=== PATIENT | female | born 1985 | race Caucasian/White ===

== ENCOUNTER → 2024-03-10 08:03 | Outpatient (CLI) | payer OTHER, SELFPAY ==
--- NOTE | 2024-03-10 08:07 | DI.MRI.S_ITS ---
PROCEDURE: MR LUMBAR SPINE WO CON INDICATIONS: intervertebral disc displacement, lumbar region TECHNIQUE: Noncontrast sagittal T1 spin echo and T2 fast echo, sagittal STIR, and T2 fast spin echo through the lumbar spine. In cases with scoliosis, additional coronal T2 fast spin echo may be performed. COMPARISON: None. FINDINGS: Image quality: Excellent. Alignment and Curvature: There is normal bony alignment. Bone Marrow: Modic type 1 degenerative endplate changes at L5-S1. Marrow is of normal overall signal. No acute vertebral body compression fractures. Spinal Cord: Conus medullaris terminates at the L1 level. Visualized cord demonstrates normal signal and size. Paraspinous Soft Tissues: No paravertebral masses. T12-L1: Normal appearance. L1-L2: Normal appearance. L2-L3: Normal appearance. L3-L4: Disc desiccation and mild diffuse disc bulge. Mild facet arthropathy. No central canal stenosis. No neural foraminal stenosis. L4-L5: Facet arthropathy and thickening of ligamentum flavum. No central canal or neural foraminal stenosis. L5-S1: Disc desiccation and height loss. Mild diffuse disc bulge with small central disc extrusion extending inferiorly. No central canal or neural foraminal stenosis. IMPRESSION: 1. Degenerative disc disease of the lower lumbar spine as described above. 2. No significant central canal or neural foraminal stenosis. Dictated by: He Mills M.D. on 03/10/2024 at 9:11 Approved by: He Mills M.D. on 03/10/2024 at 9:14
== END ==
PROVIDERS: Family Provider Nurse Practitioner Women's Health; Referring Provider Physical Medicine & Rehabilitation; Visit Provider Physical Medicine & Rehabilitation
DX: M51.26 Other intervertebral disc displacement, lumbar region (principal); M51.27 Other intervertebral disc displacement, lumbosacral region; M51.36 Other intervertebral disc degeneration, lumbar region; M51.37 Other intervertebral disc degeneration, lumbosacral region; M47.816 Spondylosis without myelopathy or radiculopathy, lumbar region
CPT/HCPCS: 72148

== ENCOUNTER 2024-09-14 08:15 | Outpatient (RCR) | payer OTHER, SELFPAY ==
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
== END 2024-09-26 08:51 | disposition home or self-care (01) ==
LOC: PHYS 08:15
PROVIDERS: Family Provider Nurse Practitioner Women's Health; Referring Provider Nurse Practitioner Women's Health; Visit Provider Nurse Practitioner Women's Health
DX: N81.89 Other female genital prolapse (principal)
CPT/HCPCS: 97110; 97112; 97535

== ENCOUNTER → 2024-12-05 14:08 | Outpatient (CLI) | payer OTHER, SELFPAY ==
--- NOTE | 2024-12-05 | DI.MRI.S_ITS ---
PROCEDURE: MR LUMBAR SPINE WO CON INDICATIONS: Lower back pain TECHNIQUE: Noncontrast sagittal T1 spin echo and T2 fast echo, sagittal STIR, and T2 fast spin echo through the lumbar spine. In cases with scoliosis, additional coronal T2 fast spin echo may be performed. COMPARISON: [facility], MR, MR LUMBAR SPINE WO CON, 03/10/2024, 8:12. [facility], CR, XR LUMBAR SPINE 2 OR 3 VIEWS, 02/24/2024, 9:54. FINDINGS: Image quality: Excellent. Alignment and Curvature: There is normal bony alignment. Bone Marrow: Marrow is of normal overall signal. No acute vertebral body compression fractures. Spinal Cord: Conus medullaris terminates at the L1 level. Visualized cord demonstrates normal signal and size. Paraspinous Soft Tissues: No paravertebral masses. T12-L1: Normal appearance. L1-L2: Normal appearance. L2-L3: Normal appearance. L3-L4: The disc height is well-preserved. Loss of disc signal is seen at this level. Mild generalized disc bulge is seen. There is a focal annular fissure seen posteriorly. No significant neural foraminal or central canal narrowing can be seen. Stable from the prior study. L4-L5: The disc height and disk signal are well-preserved. Mild facet joint hypertrophy is seen. No neural foraminal narrowing or central canal narrowing can be seen. Stable from the prior study. L5-S1: Mild loss of disc height is seen. Loss of disc signal is seen. Mild generalized disc bulge is seen. Mild facet joint hypertrophy is seen. No neural foraminal narrowing or central canal narrowing can be seen. The previously seen central disc extrusion is no longer seen. IMPRESSION: The previously seen mild central disc extrusion at L5-S1 is no longer seen. Otherwise, stable MRI. Dictated by: Gabriel Arriola M.D. on 12/05/2024 at 16:21 Approved by: Gabriel Arriola M.D. on 12/05/2024 at 16:23
== END ==
PROVIDERS: Family Provider Nurse Practitioner Women's Health; Referring Provider Chiropractor; Visit Provider Chiropractor
DX: M48.062 Spinal stenosis, lumbar region with neurogenic claudication (principal); M48.07 Spinal stenosis, lumbosacral region; M51.369 Other intervertebral disc degeneration, lumbar region without mention of lumbar back pain or lower extremity pain; M51.379 Other intervertebral disc degeneration, lumbosacral region without mention of lumbar back pain or lower extremity pain; M47.816 Spondylosis without myelopathy or radiculopathy, lumbar region; M47.817 Spondylosis without myelopathy or radiculopathy, lumbosacral region
CPT/HCPCS: 72148